=== PATIENT | female | born 1995 | race Caucasian/White ===

== ENCOUNTER 2022-12-28 18:59 | Inpatient (IN) | payer BC ==
[2022-12-28] MEDS ORDERED: Sodium Chloride 0.9% 10 ML Syringe FLUSH PRN (19:11)
[2022-12-28] MEDS ORDERED: Nalbuphine 10 MG/0.5 ML Syringe IVPUSH PRN (19:11)
[2022-12-28] MEDS ORDERED: Ondansetron 4 MG/2 ML SDV IVPUSH PRN (19:11)
[2022-12-28] MEDS: Lactated Ringers 1,000 ML IV SCH (19:57)
[2022-12-28] MEDS: Oxytocin/Lactated Ringers 10 UNIT/1,000 ML BAG IV SCH (20:36)
[2022-12-28] MEDS ORDERED: diphenhydrAMINE 50 MG/ML SDV IVPUSH PRN (21:04)
[2022-12-28] MEDS ORDERED: fentaNYL 100 MCG/2 ML SDV EPIDUR PRN (21:04)
[2022-12-28] MEDS ORDERED: Bupivacaine/fentaNYL/NS 100 ML Bag EPIDUR PRN (21:04)
[2022-12-28] MEDS ORDERED: ePHEDrine 50 MG/ML SDV IVPUSH PRN (21:04)
[2022-12-29] MEDS ORDERED: Ropivacaine 0.2% PF 2 MG/ML 20 ML SDV ONE
[2022-12-29] MEDS: Lactated Ringers 1,000 ML IV SCH ×2 (04:28→06:35)
[2022-12-29] MEDS ORDERED: Pantoprazole 40 MG Vial IVPUSH ONE (07:23)
[2022-12-29] MEDS: Sodium Chloride 0.9% 10 ML Syringe FLUSH SCH ×2 (07:56→14:30)
[2022-12-29] MEDS: Oxytocin/Lactated Ringers 10 UNIT/1,000 ML BAG IV SCH (10:22)
[2022-12-29] MEDS ORDERED: Witch Hazel Medicated Pads 40/Jar TOP PRN (10:25)
[2022-12-29] MEDS ORDERED: Acetaminophen 325 MG Tab PO PRN (10:25)
[2022-12-29] MEDS ORDERED: Benzocaine/Menthol 20%-0.5% Spray 78 GM Cannister TOP PRN (10:25)
[2022-12-29] MEDS: Ibuprofen 600 MG Tab PO PRN ×2 (11:51→23:32)
[2022-12-30] MEDS ORDERED: Lactated Ringers 1,000 ML IV ONE (00:02)
== END 2022-12-31 13:55 | disposition home or self-care (01) | DRG 560 ==
LOC: JD.OBCHECK 18:59 → JD.OB 19:00 → JD.OBCHECK 19:12 → JD.OB 19:12 → OBSVTOIN 12-29 09:44 → JD.OB 12-29 09:45
PROVIDERS: ADMIT Obstetrics & Gynecology; ATTEND Obstetrics & Gynecology
PROC: 10E0XZZ Delivery of Products of Conception, External Approach (ICD-10-PCS; principal; 2022-12-29)
PROC: 0KQM0ZZ Repair Perineum Muscle, Open Approach (ICD-10-PCS; 2022-12-29)
PROC: 3E0R3BZ Introduction of Anesthetic Agent into Spinal Canal, Percutaneous Approach (ICD-10-PCS; 2022-12-29)
PROC: 00HU33Z Insertion of Infusion Device into Spinal Canal, Percutaneous Approach (ICD-10-PCS; 2022-12-29)
DX: O42.02 Full-term premature rupture of membranes, onset of labor within 24 hours of rupture (principal); O70.1 Second degree perineal laceration during delivery; Z37.0 Single live birth; Z3A.39 39 weeks gestation of pregnancy
CPT/HCPCS: 01967; 36415; 51702; 59025; 59409; 85025; 86592; A9270-GY; C9113; J2300; J2590; J2795; J3490; J7120

== ENCOUNTER 2025-03-01 06:54 | Inpatient (IN) | payer BC ==
[2025-03-01] MEDS ORDERED: Acetaminophen 325 MG Tab PO PRN ×2 (07:16→19:57)
[2025-03-01] MEDS ORDERED: Sodium Chloride 0.9% 10 ML Syringe FLUSH PRN (07:16)
[2025-03-01] MEDS ORDERED: Ondansetron 4 MG/2 ML SDV IVPUSH PRN (07:16)
[2025-03-01] MEDS ORDERED: Lidocaine 1% 50 ML MDV INJECT PRN (07:16)
[2025-03-01] MEDS ORDERED: Nalbuphine 10 MG/1 ML Vial IVPUSH PRN (07:16)
[2025-03-01] MEDS ORDERED: Oxytocin/0.9 % Sodium Chloride 30 UNIT/500 ML BAG IV SCH (07:30)
[2025-03-01 07:46] LABS: BASOPHILS PERCENT AUTO 0.4 % (0.0-1.0); EOSINOPHILS ABSOLUTE AUTO 0.3 K/mm3 (0.0-0.4); EOSINOPHILS PERCENT AUTO 3.7 % (0.0-6.0); HEMATOCRIT 34.4 % (37.0-47.0); HEMOGLOBIN 11.7 gm/dl (12.0-16.0); IMMATURE GRAN ABSOLUTE AUTO 0.07 K/mm3 (0.00-0.05); IMMATURE GRAN PERCENT AUTO 0.9 % (0.0-0.4); LYMPHOCYTES ABSOLUTE AUTO 1.3 K/mm3 (1.0-4.8); LYMPHOCYTES PERCENT AUTO 17.2 % (24.0-44.0); MEAN CORPUSCULAR HEMOGLOBIN 32.8 pg (28.0-32.0); MEAN CORPUSCULAR VOLUME 96.4 fl (83.0-99.0); MEAN PLATELET VOLUME 9.4 fl (9.4-12.3); MONOCYTES ABSOLUTE AUTO 0.4 K/mm3 (0.0-0.8); MONOCYTES PERCENT AUTO 5.6 % (0.0-8.0); NEUTROPHILS ABSOLUTE AUTO 5.4 K/mm3 (1.8-7.7); NEUTROPHILS PERCENT AUTO 72.2 % (41.0-71.0); PLATELET COUNT,PLT 135 K/mm3 (150-400); RED BLOOD CELL COUNT 3.57 M/mm3 (4.10-5.30); WHITE BLOOD CELL COUNT,WBC 7.48 K/mm3 (3.9-11.3)
[2025-03-01] MEDS: Lactated Ringers 1,000 ML IV SCH (08:40)
[2025-03-01] MEDS: Oxytocin/0.9 % Sodium Chloride 30 UNIT/500 ML BAG IV SCH (08:42)
[2025-03-01] MEDS ORDERED: diphenhydrAMINE 50 MG/ML SDV IVPUSH PRN (13:57)
[2025-03-01] MEDS ORDERED: ePHEDrine 50 MG/ML SDV IVPUSH PRN (13:57)
[2025-03-01] MEDS: Bupivacaine/fentaNYL/NS 100 ML Bag EPIDUR PRN (14:04)
[2025-03-01] MEDS: fentaNYL 100 MCG/2 ML SDV EPIDUR PRN (14:04)
[2025-03-01] MEDS ORDERED: Docusate Sodium 100 MG Cap PO PRN (19:57)
[2025-03-01] MEDS: Benzocaine/Menthol 20%-0.5% Spray 78 GM Cannister TOP PRN (21:13)
[2025-03-01] MEDS: Witch Hazel Medicated Pads 40/Jar TOP PRN (21:13)
[2025-03-01] MEDS: Ibuprofen 600 MG Tab PO SCH (21:38)
== END 2025-03-02 18:35 | disposition home or self-care (01) | DRG 560 ==
LOC: JD.OB 06:54 → OBSVTOIN 17:04
PROVIDERS: ADMIT Obstetrics & Gynecology; ATTEND Obstetrics & Gynecology
PROC: 10E0XZZ Delivery of Products of Conception, External Approach (ICD-10-PCS; principal; 2025-03-01)
PROC: 10907ZC Drainage of Amniotic Fluid, Therapeutic from Products of Conception, Via Natural or Artificial Opening (ICD-10-PCS; 2025-03-01)
PROC: 3E033VJ Introduction of Other Hormone into Peripheral Vein, Percutaneous Approach (ICD-10-PCS; 2025-03-01)
PROC: 0KQM0ZZ Repair Perineum Muscle, Open Approach (ICD-10-PCS; 2025-03-01)
PROC: 0HB9XZZ Excision of Perineum Skin, External Approach (ICD-10-PCS; 2025-03-01)
DX: O70.1 Second degree perineal laceration during delivery (principal); Z37.0 Single live birth; Z3A.39 39 weeks gestation of pregnancy; Z86.16 Personal history of COVID-19
CPT/HCPCS: 36415; 51702; 59025; 59409; 85025; 86592; 86850; 86900; 86901; A9270-GY; J3010; J3490; J7120; J7999